=== PATIENT | male | born 1990 | race Caucasian/White ===

== ENCOUNTER 2022-02-10 03:50 | Emergency (ER) | payer SELFPAY ==
[~2022-02-10] VITALS: Ht 177.8 cm; Wt 75.0 kg
[2022-02-10 05:10] VITALS: BP 141/80
== END 2022-02-10 05:12 ==
LOC: ER 03:50
DX: Z02.89 Encounter for other administrative examinations (principal); G89.29 Other chronic pain
CPT/HCPCS: 99283